=== PATIENT | female | born 1960 | race Caucasian/White ===

== ENCOUNTER 2016-08-26 09:20 | Emergency (ER) | payer MEDICARE, BC ==
[~2016-08-26] VITALS: Ht 154.9 cm; Wt 50.0 kg
[~2016-08-26 09:20] MED LIST: ALEN35TA24 PO; CYMB30CA PO; ESTR42.5V PV; GABA400C5 PO; RANI150T PO; SM V; TRAM50TA PO; [UNRECOGNIZED DRUG - OTHER]
[2016-08-26 09:21] VITALS: BP 148/92; PULSE 118; RESP 16; TEMP 99; O2SAT 100
[2016-08-26] MEDS ORDERED: TRAM50TA PO (09:38)
[2016-08-26] MEDS ORDERED: CYMB30CA PO (09:38)
[2016-08-26] MEDS ORDERED: ALEN35TA24 PO (09:38)
[2016-08-26] MEDS ORDERED: GABA400C5 PO (09:38)
[2016-08-26] MEDS ORDERED: ONDANSETRON HCL 4 MG/2 ML VIAL IV PUSH ONE (10:00)
[2016-08-26] MEDS ORDERED: LORazepam 2 MG/ML VIAL IV PUSH ONE (10:00)
[2016-08-26 10:17] LABS: AUTOMATED NEUTROPHIL # 3.7 TH/MM3 (1.8-7.7); BASOPHIL % 0.3 % (0.0-2.0); EOSINOPHIL # 0.1 TH/MM3 (0-0.4); EOSINOPHIL % 1.2 % (0.0-4.0); HEMATOCRIT 40.9 % (35.0-46.0); LYMPH % 25.7 % (9.0-44.0); LYMPHOCYTE # 1.6 TH/MM3 (1.0-4.8); MEAN CELL VOLUME 109.1 FL (80.0-100.0); MEAN CORPUSCULAR HEMOGLOBIN 37.1 PG (27.0-34.0); MONO % 10.9 % (0.0-8.0); NEUT % 61.9 % (16.0-70.0); PLATELET COUNT 82 TH/MM3 (150-450); RED BLOOD COUNT 3.75 MIL/MM3 (4.00-5.30); RED CELL DISTRIBUTION WIDTH 12.7 % (11.6-17.2)
[2016-08-26 10:25] LABS: APTT (PATIENT) 25.7 SEC (24.3-30.1); PROTHROMBIN TIME - PATIENT 11.2 SEC (9.8-11.6)
[2016-08-26 10:36] LABS: BICARBONATE 26.5 MEQ/L (21.0-32.0)
[2016-08-26 10:46] LABS: HEMO FLAGS AUTO DIFF
[2016-08-26 10:48] LABS: POTASSIUM 3.7 MEQ/L (3.5-5.1)
[2016-08-26 10:49] LABS: PLATELET ESTIMATE SMEAR LOW (NORMAL); PLATELET MORPHOLOGY NORMAL (NORMAL); SCAN/DIFF AUTO DIFF CONFIRMED
[2016-08-26] MEDS ORDERED: IOHEXOL 350 MG/ML 10 ML VIAL (for RAD DIAG) IV ONE (11:20)
[2016-08-26 11:30] VITALS: BP 143/70; PULSE 89; RESP 15; TEMP 97.8; O2SAT 99
--- NOTE | 2016-08-26 11:35 | RADRPT ---
EXAM DATE/TIME: 08/26/2016 11:06 [facility] COMPARISON: No previous studies available for comparison. INDICATIONS : Multiple recent falls. Head and neck pain. RADIATION DOSE: 56.35 CTDIvol (mGy) MEDICAL HISTORY : None SURGICAL HISTORY : Cholecystectomy. ENCOUNTER: Initial ACUITY: 4 - 6 days PAIN SCALE: 3/10 LOCATION: Bilateral neck TECHNIQUE: Multiple contiguous axial images were obtained of the head. Using automated exposure control and adj ustment of the mA and/or kV according to patient size, radiation dose was kept as low as reasonably a chievable to obtain optimal diagnostic quality images. DICOM format image data is available electro nically for review and comparison. FINDINGS: Cerebral atrophy is noted. There is no acute infarct, acute hemorrhage, mass effect or extra-axial f luid collections. Subgaleal hematoma is noted along the left parietoccipital skull. No skull fractu re is noted. CONCLUSION: 1. Mild cerebral atrophy. 2. No acute infarct, acute hemorrhage, mass effect or extra-axial fluid collections. Subgaleal hemato ma along the left posterior parietal occipital skull without underlying skull fracture. Ricardo Art MD on August 26, 2016 at 11:26 Board Certified Radiologist. This report was verified electronically.
--- NOTE | 2016-08-26 11:41 | PD ---
HPI Chief Complaint: Fall Time Seen by Provider: 09:43 Travel History International Travel<30 days: No Contact w/Intl Traveler<30days: No Traveled to known affect area: No History of Present Illness HPI 55yo F with PMH of anxiety presents to the ED with c/o pain after falling 4 days ago. Pt states she slipped on wet floor and hit left side of her head. + Nausea. Denies any fever, chest pain, sob, vomiting, abdominal pain, focal weakness or numbness. Pt has history of cervical spine surgery. Pt is also very anxious. PFSH Past Medical History Anxiety: Yes Cancer: No Cardiovascular Problems: No Diabetes: No Endocrine: No Genitourinary: No Hepatitis: No Hiatal Hernia: No Immune Disorder: No Musculoskeletal: No Neurologic: Yes (NEUROPATHY) Psychiatric: Yes (ANXIETY) Reproductive: No Respiratory: No Thyroid Disease: No Tetanus Vaccination: > 5 Years Influenza Vaccination: Yes ?: Not Menopausal: Yes Past Surgical History Abdominal Surgery: No AICD: No Cardiac Surgery: No Ear Surgery: Yes Endocrine Surgery: No Eye Surgery: Yes Genitourinary Surgery: No Gynecologic Surgery: No Joint Replacement: Yes Oral Surgery: Yes Pacemaker: No Thoracic Surgery: No Other Surgery: Yes Social History Alcohol Use: Yes (RARE ) Tobacco Use: Yes Substance Use: No (PT DENIES) Allergies-Medications (Allergen,Severity, Reaction): Coded Allergies: Wellbutrin (Verified Allergy, Severe, Anaphylaxis, 08/26/16) Oxycodone (Verified Allergy, Unknown, ITCHING, 08/26/16) Reported Meds & Prescriptions Reported Meds & Active Scripts Active Reported Cymbalta DR (Duloxetine HCl) 30 Mg Capdr 30 Mg PO DAILY Tramadol (Tramadol HCl) 50 Mg Tab 50 Mg PO Q12HR PRN Alendronate (Alendronate Sodium) 35 Mg Tab 35 Mg PO Q7D Gabapentin 400 Mg Cap 400 Cap PO TID Review of Systems Except as stated in HPI: all other systems reviewed are Neg Physical Exam Narrative GENERAL: 55yo F not in distress. SKIN: Focused skin assessment warm/dry. HEAD: +Hematoma in left occiput. No active bleeding. EYES: Pupils equal and round. No scleral icterus. No injection or drainage. ENT: No nasal bleeding or discharge. Mucous membranes pink and moist. NECK: Trachea midline. No JVD. +Ecchymoses in left posterior neck. CARDIOVASCULAR: Regular rate and rhythm. No murmur appreciated. RESPIRATORY: No accessory muscle use. Clear to auscultation. Breath sounds equal bilaterally. GASTROINTESTINAL: Abdomen soft, non-tender, nondistended. MUSCULOSKELETAL: No obvious deformities. No clubbing. No cyanosis. No edema. NEUROLOGICAL: Awake and alert. No obvious cranial nerve deficits. Motor grossly within normal limits. Normal speech. PSYCHIATRIC: Appears anxious. Data Data Last Documented VS Vital Signs Date Time Temp Pulse Resp B/P Pulse Ox O2 Delivery O2 Flow Rate FiO2 08/26/16 11:30 97.8 89 15 143/70 99 Room Air Orders Electrocardiogram (08/26/16 ) Ct Brain W/O Iv Contrast(Rout) (08/26/16 ) Ct Cerv Spine W/O Contrast (08/26/16 ) Ct Abd/Pel W Iv Contrast(Rout) (08/26/16 ) Complete Blood Count With Diff (08/26/16 09:55) Basic Metabolic Panel (Bmp) (08/26/16 09:55) Lorazepam Inj (Ativan Inj) (08/26/16 10:00) Prothrombin Time / Inr (Pt) (08/26/16 09:55) Act Partial Throm Time (Ptt) (08/26/16 09:55) Ondansetron Inj (Zofran Inj) (08/26/16 10:00) Iohexol 350 Inj (Omnipaque 350 Inj) (08/26/16 11:20) Labs Laboratory Tests Test 08/26/16 10:00 White Blood Count 6.0 TH/MM3 Red Blood Count 3.75 MIL/MM3 Hemoglobin 13.9 GM/DL Hematocrit 40.9 % Mean Corpuscular Volume 109.1 FL Mean Corpuscular Hemoglobin 37.1 PG Mean Corpuscular Hemoglobin 34.0 % Concent Red Cell Distribution Width 12.7 % Platelet Count 82 TH/MM3 Mean Platelet Volume 10.0 FL Neutrophils (%) (Auto) 61.9 % Lymphocytes (%) (Auto) 25.7 % Monocytes (%) (Auto) 10.9 % Eosinophils (%) (Auto) 1.2 % Basophils (%) (Auto) 0.3 % Neutrophils # (Auto) 3.7 TH/MM3 Lymphocytes # (Auto) 1.6 TH/MM3 Monocytes # (Auto) 0.7 TH/MM3 Eosinophils # (Auto) 0.1 TH/MM3 Basophils # (Auto) 0.0 TH/MM3 CBC Comment AUTO DIFF Differential Comment AUTO DIFF CONFIRMED Platelet Estimate LOW Platelet Morphology Comment NORMAL Prothrombin Time 11.2 SEC Prothromb Time International 1.0 RATIO Ratio Activated Partial 25.7 SEC Thromboplast Time Sodium Level 132 MEQ/L Potassium Level 3.7 MEQ/L Chloride Level 94 MEQ/L Carbon Dioxide Level 26.5 MEQ/L Anion Gap 12 MEQ/L Blood Urea Nitrogen 11 MG/DL Creatinine 0.69 MG/DL Estimat Glomerular Filtration 88 ML/MIN Rate Random Glucose 124 MG/DL Calcium Level 8.8 MG/DL [facility] Medical Decision Making Medical Screen Exam Complete: Yes Emergency Medical Condition: Yes Interpretation(s) EKG: Sinus tachycardia at 103bpm. Normal axis. No ST segment elevation or depression. Differential Diagnosis Anxiety vs. contusion vs. fracture vs. ICH Narrative Course 55yo F with persistent pain after falling 4 days ago. Labs reviewed, no leukocytosis. Mild hyponatremia at 132. CTa/p showed no acute bony fractures or intra-abdominal hemorrhage. Chronic pancreatitis. Cystic lesion in pancreatic head likely pancreatic pseudocyst. No inflammatory change or CBD obstruction. CT cspine showed no acute fracture. CT brain negative for ICH. Pt given ativan and zofran. Feels much better and pain has resolved. Pt feels less anxious and no longer nauseous. Tolerating PO. Return precautions given. Diagnosis Primary Impression: Fall Qualified Code: W19.XXXA - Fall, initial encounter Patient Instructions: General Instructions Departure Forms: Tests/Procedures Additional Instructions: Please follow up with your PMD in 3-7 days. Return to the ED if symptoms worsen. Med/Other Pt SpecificInfo: Prescription(s) given Scripts Acetaminophen (Tylenol)325 Mg [id number] Mg PO Q6H PRN (PAIN SCALE 1 TO 4) #20 TAB Ref 0 Prov:Dasha Gillis DO 08/26/16 Disposition: 01 DISCHARGE HOME Condition: Stable Dasha Gillis DO Aug 26, 2016 11:41
--- NOTE | 2016-08-26 11:47 | RADRPT ---
EXAM DATE/TIME: 08/26/2016 11:15 [facility] COMPARISON: No previous studies available for comparison. INDICATIONS : Abdominal pain status post falls. IV CONTRAST: 93 cc Omnipaque 350 (iohexol) IV ORAL CONTRAST: No oral contrast ingested. RADIATION DOSE: CTDIvol (mGy) MEDICAL HISTORY : None SURGICAL HISTORY : Cholecystectomy. ENCOUNTER: Initial ACUITY: 1 day PAIN SCALE: 3/10 LOCATION: abdomen TECHNIQUE: Volumetric scanning of the abdomen and pelvis was performed. Using automated exposure control and ad justment of the mA and/or kV according to patient size, radiation dose was kept as low as reasonably achievable to obtain optimal diagnostic quality images. DICOM format image data is available electro nically for review and comparison. FINDINGS: LOWER LUNGS: Minimal bibasilar atelectasis at the lung bases. LIVER: Diffusely decreased hepatic density without significant volume loss, intrahepatic ductal dilatation, or gross focal mass. Gallbladder is surgically absent. SPLEEN: Normal size without lesion. PANCREAS: Grossly abnormal. Diffuse coarse calcifications throughout the pancreas with mild diffuse pancreatic ductal dilatation consistent with sequela of prior pancreatitis. There is a cystic lesion in the panc reatic head measuring 1.9 x 2.1 cm. No significant peripancreatic inflammatory change. No significant CBD distention. KIDNEYS: Normal in size and shape. There is no mass, stone or hydronephrosis. ADRENAL GLANDS: Within normal limits. VASCULAR: There is no aortic aneurysm. Moderate calcified plaque in the common iliac arteries bilaterally. BOWEL/MESENTERY: The appendix is visualized and is normal in appearance. Scattered colonic diverticula are noted in th e descending colon and sigmoid colon. No definitive significant inflammatory change to suggest divert iculitis. Bowel otherwise appears unremarkable without evidence for obstruction. ABDOMINAL WALL: Within normal limits. RETROPERITONEUM: There is no lymphadenopathy. BLADDER: No wall thickening or mass. REPRODUCTIVE: Within normal limits. INGUINAL: There is no lymphadenopathy or hernia. MUSCULOSKELETAL: No evidence for acute bony fracture. CONCLUSION: 1. No acute bony fractures or intra-abdominal hemorrhage as questioned. 2. Findings consistent with chronic pancreatitis. 1.9 x 2.1 cm cystic lesion in the pancreatic head l ikely reflects a pancreatic pseudocyst. No significant inflammatory change or CBD obstruction. 3. Diffusely decreased heterogeneous hepatic density without significant volume loss consistent with early cirrhosis/hepatosteatosis. 4. Normal appendix. 5. Scattered colonic diverticulosis without evidence for diverticulitis. Pepe Gregory MD on August 26, 2016 at 11:27 Board Certified Radiologist. This report was verified electronically.
--- NOTE | 2016-08-26 12:04 | RADRPT ---
EXAM DATE/TIME: 08/26/2016 11:09 [facility] COMPARISON: No previous studies available for comparison. INDICATIONS : Multiple recent falls. Head and neck pain. RADIATION DOSE: 28.28 CTDIvol (mGy) MEDICAL HISTORY : None SURGICAL HISTORY : Cholecystectomy. ENCOUNTER: Initial ACUITY: 4 - 6 days PAIN SCALE: 3/10 LOCATION: Bilateral cranial TECHNIQUE: Volumetric scanning of the cervical spine was performed. Multiplanar reconstructions in the sagittal, coronal and oblique axial planes were performed. Using automated exposure control and adjustment o f the mA and/or kV according to patient size, radiation dose was kept as low as reasonably achievable to obtain optimal diagnostic quality images. DICOM format image data is available electronically f or review and comparison. FINDINGS: The patient is status post anterior cervical fusion at C5 and C6 with hardware in good position. The re is straightening of the normal cervical lordosis. There is no acute fracture or prevertebral soft tissue swelling. The bony relationship and alignment between C1 and C2 is well maintained. There i s Grade I anterolisthesis of C3 in relation to C4 and C4 in relation to C5. No spinal stenosis is no breana. Moderate bilateral foraminal narrowing is noted at C3-4. Moderate right neural foraminal narro wing is noted at C2-3. Mild left neural foraminal narrowing is noted at C4-5 and mild right neural f oraminal narrowing is noted at C5-6. Diffuse disc osteophyte complexes are noted at C3-4, C4-5, and C 6-7. CONCLUSION: 1. No acute fracture or prevertebral soft tissue swelling. 2. Moderate bilateral foraminal narrowing at C3-4, moderate right neural foraminal narrowing at C2-3, mild left neural foraminal narrowing at C4-5 and mild right neural foraminal narrowing at C5-6. 3. Diffuse disc osteophyte complexes at C3-4, C4-5 and C6-7. 4. Grade I anterolisthesis of C3 in relation to C4 and C4 in relation to C5. 5. Straightening of the normal cervical lordosis. Ricardo Art MD on August 26, 2016 at 11:31 Board Certified Radiologist. This report was verified electronically.
[2016-08-26] MEDS ORDERED: TYLE325T PO (12:59)
[2016-08-26 13:15] VITALS: BP 130/77; TEMP 97.7
--- NOTE | 2016-08-26 15:32 | EKG ---
Date Performed: 08/26/2016 Time Performed: 09:45:47 PTAGE: 55 years EKG: SINUS TACHYCARDIA ABNORMAL RHYTHM ECG NO PREVIOUS TRACING DOCTOR: Juan Carlos Fallon Interpretating Date/Time 08/26/2016 15:31:35
== END 2016-08-26 13:15 | disposition home or self-care (01) ==
LOC: NEPC 09:20
DX: S00.83XA Contusion of other part of head, initial encounter (principal); R00.0 Tachycardia, unspecified; E87.1 Hypo-osmolality and hyponatremia; K86.1 Other chronic pancreatitis; F41.9 Anxiety disorder, unspecified; G62.9 Polyneuropathy, unspecified; Z79.899 Other long term (current) drug therapy; Z72.0 Tobacco use; W01.0XXA Fall on same level from slipping, tripping and stumbling without subsequent striking against object, initial encounter
CPT/HCPCS: 70450; 72125; 74177; 80048; 85025; 85610; 85730; 93005; 96374; 96375; 99285; J2060; J2405; Q9967